=== PATIENT | female | born 1985 | race Caucasian/White ===

== ENCOUNTER 2016-11-26 14:30 | Emergency (ER) | payer OTHER ==
--- NOTE | 2016-11-26 14:46 | ED.ADGEN ---
Past History Past Medical History: No Pertinent History Past Medical History Asthma as a child, anxiety, restless leg syndrome Past Surgical History: , Tonsillectomy Past Surgical History 2, tonsillectomy with adenoidectomy, ORIF arm fracture, oral surgery Smoking: Quit Greater Than 1 Year Alcohol Use: None Drug Use: None Adult General HPI HPI This is a pleasant 31-year-old female who presents emergency Department with a chief complaint of vaginal bleeding. The patient is 9 weeks from a C- section. Patient states she had her last follow-up exam with her ASSOCIATE CREATIVE DIRECTOR 2 weeks ago and was allowed to return back to normal activities. The patient presents that she had sex 5 days ago for the first time. The patient reports that she's had vaginal bleeding greater than 2 pads per hour for the past 3 days. The patient reports that she is feeling weak and tired easily. The patient reports that the infant is sleeping well and that that is giving her reasonable sleep. She does understand why she is so tired. The patient reports that she is a C- section on September 25, 2016. Dr. anderson is her ASSOCIATE CREATIVE DIRECTOR. The patient taking Motrin and Tylenol as needed for pain since she was taken off of the Percocet that she is initially on for her . The patient also takes Zoloft for anxiety and referral for progressive leg syndrome. The patient reports feeling more anxious the delivery of her child. The patient denies suicidal or homicidal ideation. Review of Systems Review of Systems Constitutional: Denies fever or chills [] Eyes: Denies change in visual acuity, redness, or eye pain [] HENT: Denies nasal congestion or sore throat [] Respiratory: Denies cough or shortness of breath [] Cardiovascular: No additional information not addressed in HPI [] GI: Denies abdominal pain, nausea, vomiting, bloody stools or diarrhea [] : Denies dysuria or hematuria [] Musculoskeletal: Denies back pain or joint pain [] Integument: Denies rash or skin lesions [] Neurologic: Denies headache, focal weakness or sensory changes [] Endocrine: Denies polyuria or polydipsia [] Current Medications Current Medications Current Medications Medications (Trade) Dose Ordered Sig/[facility] Start Time Stop Time Status Last Admin Dose Admin Ketorolac Tromethamine (Toradol) 30 mg 1X ONCE 11/26/16 15:15 10/5/17 15:16 DC 11/26/16 15:14 30 MG Morphine Sulfate (Morphine 4mg Syringe) 4 mg PRN Q15MIN PRN 11/26/16 16:30 11/26/16 17:25 DC 11/26/16 17:02 4 MG Sodium Chloride 1,000 ml @ 1,000 mls/hr 1X ONCE 11/26/16 15:15 11/26/16 16:14 DC 11/26/16 15:13 1,000 MLS/HR Allergies Allergies Allergies Coded Allergies Type Severity Reaction Last Updated Verified No Known Drug Allergies 05/27/15 No Physical Exam Physical Exam Constitutional: Well developed, well nourished, no acute distress, non-toxic appearance. [] HENT: Normocephalic, atraumatic, bilateral external ears normal, oropharynx moist, no oral exudates, nose normal. [] Eyes: PERRLA, EOMI, conjunctiva normal, no discharge. [] Neck: Normal range of motion, no tenderness, supple, no stridor. [] Cardiovascular:Heart rate regular rhythm, no murmur [] Lungs & Thorax: Bilateral breath sounds clear to auscultation [] Abdomen: Bowel sounds normal, soft, no tenderness, no masses, no pulsatile masses. [] Skin: Warm, dry, no erythema, no rash. [] Back: No tenderness, no CVA tenderness. exam: performed with the nurse as my lipcoat sprayer, normal external genitalia, minimal vaginal bleeding less than that expected for a period, no blood clots in vagina, no cervical motion tenderness, no adenexal tenderness, no adenexal mass, no uterine mass, no vaginal discharge[] Extremities: No tenderness, no cyanosis, no clubbing, ROM intact, no edema. [] Neurologic: Alert and oriented X 3, normal motor function, normal sensory function, no focal deficits noted. [] Psychologic: Affect normal, judgement normal, mood normal. [] Current Patient Data Vital Signs Vital Signs Date Time Temp Pulse Resp B/P (MAP) Pulse Ox O2 Delivery O2 Flow Rate FiO2 11/26/16 17:22 82 18 105/59 (74) 99 Room Air 11/26/16 14:30 98.2 Lab Results Laboratory Tests Test 11/26/16 15:00 White Blood Count 5.9 x10^3/uL (4.0-11.0) Red Blood Count 4.03 x10^6/uL (3.50-5.40) Hemoglobin 12.4 g/dL (12.0-15.5) Hematocrit 36.3 % (36.0-47.0) Mean Corpuscular Volume 90 fL (79-100) Mean Corpuscular Hemoglobin 31 pg (25-35) Mean Corpuscular Hemoglobin Concent 34 g/dL (31-37) Red Cell Distribution Width 13.2 % (11.5-14.5) Platelet Count 195 x10^3/uL (140-400) Neutrophils (%) (Auto) 57 % (31-73) Lymphocytes (%) (Auto) 32 % (24-48) Monocytes (%) (Auto) 7 % (0-9) Eosinophils (%) (Auto) 4 % (0-3) H Basophils (%) (Auto) 1 % (0-3) Neutrophils # (Auto) 3.3 x10^3uL (1.8-7.7) Lymphocytes # (Auto) 1.9 x10^3/uL (1.0-4.8) Monocytes # (Auto) 0.4 x10^3/uL (0.0-1.1) Eosinophils # (Auto) 0.2 x10^3/uL (0.0-0.7) Basophils # (Auto) 0.0 x10^3/uL (0.0-0.2) Sodium Level 141 mmol/L (136-145) Potassium Level 3.5 mmol/L (3.5-5.1) Chloride Level 106 mmol/L (98-107) Carbon Dioxide Level 30 mmol/L (21-32) Anion Gap 5 (6-14) L Blood Urea Nitrogen 11 mg/dL (7-20) Creatinine 0.8 mg/dL (0.6-1.0) Estimated GFR (Cockcroft-Gault) 84.8 BUN/Creatinine Ratio 14 (6-20) Glucose Level 80 mg/dL (70-99) Calcium Level 8.8 mg/dL (8.5-10.1) Total Bilirubin 0.3 mg/dL (0.2-1.0) Aspartate Amino Transferase (AST) 18 U/L (15-37) Alanine Aminotransferase (ALT) 29 U/L (14-59) Alkaline Phosphatase 51 U/L (46-116) Total Protein 6.5 g/dL (6.4-8.2) Albumin 3.4 g/dL (3.4-5.0) Albumin/Globulin Ratio 1.1 (1.0-1.7) Microbiology 11/26/16 Wet Prep - Final, Complete Laboratory Tests Test 11/26/16 15:00 White Blood Count 5.9 x10^3/uL (4.0-11.0) Red Blood Count 4.03 x10^6/uL (3.50-5.40) Hemoglobin 12.4 g/dL (12.0-15.5) Hematocrit 36.3 % (36.0-47.0) Mean Corpuscular Volume 90 fL (79-100) Mean Corpuscular Hemoglobin 31 pg (25-35) Mean Corpuscular Hemoglobin Concent 34 g/dL (31-37) Red Cell Distribution Width 13.2 % (11.5-14.5) Platelet Count 195 x10^3/uL (140-400) Neutrophils (%) (Auto) 57 % (31-73) Lymphocytes (%) (Auto) 32 % (24-48) Monocytes (%) (Auto) 7 % (0-9) Eosinophils (%) (Auto) 4 % (0-3) H Basophils (%) (Auto) 1 % (0-3) Neutrophils # (Auto) 3.3 x10^3uL (1.8-7.7) Lymphocytes # (Auto) 1.9 x10^3/uL (1.0-4.8) Monocytes # (Auto) 0.4 x10^3/uL (0.0-1.1) Eosinophils # (Auto) 0.2 x10^3/uL (0.0-0.7) Basophils # (Auto) 0.0 x10^3/uL (0.0-0.2) Sodium Level 141 mmol/L (136-145) Potassium Level 3.5 mmol/L (3.5-5.1) Chloride Level 106 mmol/L (98-107) Carbon Dioxide Level 30 mmol/L (21-32) Anion Gap 5 (6-14) L Blood Urea Nitrogen 11 mg/dL (7-20) Creatinine 0.8 mg/dL (0.6-1.0) Estimated GFR (Cockcroft-Gault) 84.8 BUN/Creatinine Ratio 14 (6-20) Glucose Level 80 mg/dL (70-99) Calcium Level 8.8 mg/dL (8.5-10.1) Total Bilirubin 0.3 mg/dL (0.2-1.0) Aspartate Amino Transferase (AST) 18 U/L (15-37) Alanine Aminotransferase (ALT) 29 U/L (14-59) Alkaline Phosphatase 51 U/L (46-116) Total Protein 6.5 g/dL (6.4-8.2) Albumin 3.4 g/dL (3.4-5.0) Albumin/Globulin Ratio 1.1 (1.0-1.7) Microbiology 11/26/16 Wet Prep - Final, Complete EKG EKG [] Radiology/Procedures Radiology/Procedures [address] [address] IMAGING REPORT Signed PATIENT: MARIANO SALCEDO ACCOUNT: [id number] : 1985 LOCATION: ER AGE: 31 SEX: F EXAM STATUS: REG ER ORD. PHYSICIAN: CLARICE MORALES MD REASON: bleeding 9 weeks after c section concern for retained products of PROCEDURE: US PELVIS W/TV Pelvic ultrasound, 11/26/2016: History: bleeding Transabdominal and transvaginal scans were obtained. The uterus is retroverted. It is within normal limits in size. The central uterine echo complex measures only 6 mm in greatest AP dimension. No significant retained products of conception are evident. There is a tiny amount of fluid in the central uterine cavity. The ovaries are within normal limits in size. They contain small follicular cysts. No adnexal mass is seen. There is a small to moderate amount of free fluid in the pelvis. IMPRESSION: 1. Tiny amount of fluid in the central uterine cavity. 2. Small to moderate volume of free fluid in the pelvis. DICTATED AND SIGNED BY: PRIMITIVO CROWDER MD DATE: 11/26/16 5163 CC: JAY GAVIRIA MD; CLARICE MORALES MD ~ [] Course & Med Decision Making Course & Med Decision Making Pertinent Labs and Imaging studies reviewed. (See chart for details) This is a pleasant 31-year-old female who presents immersed department with ongoing vaginal bleeding following a delivery 9 weeks ago. The patient 's bleeding on exam was very minimal. The patient had minimal bleeding throughout her emergency department stay. Patient's hemogram agree stable throughout her emergency department stay. The patient's ultrasound did not show any signs for retained products of conception or other abnormalities. I discussed the patient the need for close follow-up patient verbalizes understanding and agrees to plan for outpatient follow-up. I recommended over- the-counter iron tablets or vitamins to help the patient maintained her iron levels. She verbalized understanding and agreed with this plan.[] Final Impression Final Impression Dysfunctional uterine bleeding, mild anemia[] Problems: Dragon Disclaimer Dragon Disclaimer This electronic medical record was generated, in whole or in part, using a voice recognition dictation system. Departure Departure: Impression: Primary Impression: Dysfunctional uterine bleeding Additional Impression: Anemia Disposition: 01 HOME, SELF-CARE Condition: GOOD Patient Instructions: Uterine Bleeding, Dysfunctional Additional Instructions: The patient is referred back to Dr. Alvares for follow-up. CLARICE MORALES MD Nov 26, 2016 14:46
[2016-11-26] MEDS ORDERED: KETOROLAC 30 MG/ML VIAL. IV ONE (15:15)
[2016-11-26] MEDS ORDERED: IV NORMAL SALINE 1,000ML 1,000 ML IV ONE (15:15)
[2016-11-26 15:22] LABS: BASO % 1 % (0-3); EOS # 0.2 x10^3/uL (0.0-0.7); EOS % 4 % (0-3); HEMATOCRIT 36.3 % (36.0-47.0); HEMOGLOBIN 12.4 g/dL (12.0-15.5); LYMPH # 1.9 x10^3/uL (1.0-4.8); LYMPH % 32 % (24-48); MEAN CORPUSCULAR HEMOGLOBIN 31 pg (25-35); MEAN CORPUSCULAR HGB CONC 34 g/dL (31-37); MEAN CORPUSCULAR VOLUME 90 fL (79-100); MONO # 0.4 x10^3/uL (0.0-1.1); MONO % 7 % (0-9); NEUT # 3.3 x10^3uL (1.8-7.7); NEUT % 57 % (31-73); PLATELET COUNT 195 x10^3/uL (140-400); RED BLOOD COUNT 4.03 x10^6/uL (3.50-5.40); RED CELL DISTRIBUTION WIDTH 13.2 % (11.5-14.5); WHITE BLOOD COUNT 5.9 x10^3/uL (4.0-11.0)
[2016-11-26 15:35] LABS: ALBUMIN 3.4 g/dL (3.4-5.0); ALBUMIN/GLOBULIN RATIO 1.1 (1.0-1.7); CALCIUM 8.8 mg/dL (8.5-10.1); CREATININE 0.8 mg/dL (0.6-1.0); GFR 84.8; POTASSIUM 3.5 mmol/L (3.5-5.1); TOTAL BILIRUBIN 0.3 mg/dL (0.2-1.0); TOTAL PROTEIN 6.5 g/dL (6.4-8.2)
[2016-11-26] MEDS: MORPHINE SULFATE 4 MG/ML DISP.SYRIN. IV/SQ PRN ×2 (16:35→17:02)
--- NOTE | 2016-11-26 16:39 | RAD ---
Pelvic ultrasound, 11/26/2016: History: bleeding Transabdominal and transvaginal scans were obtained. The uterus is retroverted. It is within normal limits in size. The central uterine echo complex measures only 6 mm in greatest AP dimension. No significant retained products of conception are evident. There is a tiny amount of fluid in the central uterine cavity. The ovaries are within normal limits in size. They contain small follicular cysts. No adnexal mass is seen. There is a small to moderate amount of free fluid in the pelvis. IMPRESSION: 1. Tiny amount of fluid in the central uterine cavity. 2. Small to moderate volume of free fluid in the pelvis.
[2016-11-26 17:22] VITALS: BP 105/59
[2016-11-30 21:08] LABS: CHLAMYDIA PROBE Negative (Negative)
== END 2016-11-26 17:25 | disposition home or self-care (01) ==
LOC: ER 14:30
DX: N93.8 Other specified abnormal uterine and vaginal bleeding (principal); D64.9 Anemia, unspecified; F41.9 Anxiety disorder, unspecified; Z98.890 Other specified postprocedural states
CPT/HCPCS: 36415; 76830; 76856; 80053; 85025; 86850; 86900; 86901; 87491; 87591; 96361; 96372; 96374; 96375; 99285; J1885; J2270; Q0111; J7030

== ENCOUNTER 2017-01-30 18:17 | Emergency (ER) | payer OTHER ==
[~2017-01-30] VITALS: Ht 160 cm; Wt 68.6 kg
[2017-01-30 18:43] VITALS: BP 105/59
== END 2017-01-30 19:05 | disposition home or self-care (01) ==
LOC: ER 18:17
DX: R10.9 Unspecified abdominal pain (principal); Z53.21 Procedure and treatment not carried out due to patient leaving prior to being seen by health care provider

== ENCOUNTER 2017-05-09 14:03 | Emergency (ER) | payer OTHER ==
[2017-05-09 14:15] VITALS: BP 138/76
--- NOTE | 2017-05-09 14:44 | PHYS DOC ---
Past History Past Medical History: UTI, Other Past Surgical History: , Tonsillectomy, Tubal ligation Smoking: Quit Greater Than 1 Year Alcohol Use: Rarely Drug Use: None Adult General Chief Complaint Chief Complaint: PAIN ON URINATION [facility] HPI Patient is a 31 year old female who presents with pain in the left back left hip. She states been hurting for last 3-4 days. She's been trying Tylenol and ibuprofen without any relief. She states it hurts more when she tries to bend over and picker tender her son. She states when she's had this pain in the past and has had a bladder kidney infection. She denies any nausea vomiting diarrhea. She denies any abdominal pain. Review of Systems Review of Systems Constitutional: Denies fever or chills [] Eyes: Denies change in visual acuity, redness, or eye pain [] HENT: Denies nasal congestion or sore throat [] Respiratory: Denies cough or shortness of breath [] Cardiovascular: No additional information not addressed in HPI [] GI: Denies abdominal pain, nausea, vomiting, bloody stools or diarrhea [] : Denies dysuria or hematuria [] Musculoskeletal: Positive for back pain, Denies joint pain [] Integument: Denies rash or skin lesions [] Neurologic: Denies headache, focal weakness or sensory changes [] Endocrine: Denies polyuria or polydipsia [] All other systems were reviewed and found to be within normal limits, except as documented in this note. Allergies Allergies Allergies Coded Allergies Type Severity Reaction Last Updated Verified No Known Drug Allergies 05/27/15 No Physical Exam Physical Exam Constitutional: Well developed, well nourished, no acute distress, non-toxic appearance. [] HENT: Normocephalic, atraumatic, bilateral external ears normal, oropharynx moist, no oral exudates, nose normal. [] Eyes: PERRLA, EOMI, conjunctiva normal, no discharge. [] Neck: Normal range of motion, no tenderness, supple, no stridor. [] Cardiovascular:Heart rate regular rhythm, no murmur [] Lungs & Thorax: Bilateral breath sounds clear to auscultation [] Abdomen: Bowel sounds normal, soft, no tenderness, no masses, no pulsatile masses. [] Skin: Warm, dry, no erythema, no rash. [] Back: Nontender palpation in the left paraspinal area down the left hip, no midline tenderness, no pain with range of motion of the left hip, no CVA tenderness. [] Extremities: No tenderness, no cyanosis, no clubbing, ROM intact, no edema. [] Neurologic: Alert and oriented X 3, normal motor function, normal sensory function, no focal deficits noted. [] Psychologic: Affect normal, judgement normal, mood normal. [] Current Patient Data Vital Signs Vital Signs Date Time Temp Pulse Resp B/P (MAP) Pulse Ox O2 Delivery O2 Flow Rate FiO2 05/09/17 14:15 98.4 89 18 96 Room Air Lab Results Laboratory Tests Test 05/09/17 13:39 POC Urine HCG, Qualitative hcg negative (Negative) EKG EKG [] Radiology/Procedures Radiology/Procedures [] Impressions: Muscle skeletal pain Vaginosis Course & Med Decision Making Course & Med Decision Making Pertinent Labs and Imaging studies reviewed. (See chart for details) UA and UCG negative. We'll treat for muscle skeletal pain with Flexeril. Return precautions given. When I was getting ready to discharge the patient she states Flexeril makes her too sleepy and recommend something else. She also confirmed nurse that she's had bacterial vaginosis and was treated with Keflex and it did not help. She is requesting another antibiotic. I spoke with the patient she does not want have a pelvic examination is requesting antibiotics. She is also requesting Diflucan. Dragon Disclaimer Dragon Disclaimer This electronic medical record was generated, in whole or in part, using a voice recognition dictation system. Departure Departure: Impression: Primary Impression: Back pain Disposition: 01 HOME, SELF-CARE Condition: STABLE Referrals: PCP,NO (PCP) Patient Instructions: Back Pain, Adult Additional Instructions: Your urinalysis did not show any signs of infection or . You likely pulled some muscles buttock area around your baby. You can take Valium as needed and as instructed. Valium can make you sleepy so do not drink alcohol or drive or taking it if it makes her too sleepy to take it every 8 hours and take one tablet before you go to bed. You can also take Tylenol or ibuprofen with it. If you develop high fevers, numbness or weakness in your legs, severe pain, or other concerns please return back to ER immediately. You should follow- up with primary care physician within the next 4-5 days. Do not breast-feed while taking these medicines. You are also being discharged with Flagyl which is an antibiotic for your vaginosis. Do not drink any alcohol or taking this medicine as it can make you sick. If you develop a yeast infection from the antibiotics she can take one tablet of Diflucan. You should follow back up with your FAMILY THERAPIST physician and primary care physician regarding the above problems. Scripts Fluconazole (DIFLUCAN) 150 Mg Tablet 1 TAB PO ONCE, #1 TAB 1 Refill Prov: GURVINDER FRANCIS MD 05/09/17 Metronidazole (FLAGYL) 500 Mg Tablet 1 TAB PO BID, #14 TAB Prov: GURVINDER FRANCIS MD 05/09/17 Diazepam (VALIUM) 5 Mg Tablet 5 MG PO TID Y for MUSCLE SPASMS, #20 TAB Prov: GURVINDER FRANCIS MD 05/09/17 Cyclobenzaprine Hcl (CYCLOBENZAPRINE HCL) 10 Mg Tablet 1 TAB PO TID Y for MUSCLE PAIN, #30 TAB Prov: GURVINDER FRANCIS MD 05/09/17 Problem Qualifiers Primary Impression: Back pain Back pain location: low back pain Chronicity: acute Back pain laterality: left Sciatica presence: without sciatica Qualified Codes: M54.5 - Low back pain GURVINDER FRANCIS MD May 09, 2017 14:44
[2017-05-09 14:55] LABS: BACTERIA,URINE FEW /HPF (0-FEW); BILIRUBIN,URINE NEG (NEG); CLARITY,URINE CLEAR; COLOR,URINE YELLOW; GLUCOSE,URINE NEG (NEG); NITRITE,URINE NEG (NEG); RBC,URINE 0 /HPF (0-2); SQUAMOUS EPITHELIAL CELL,UR OCC /LPF; UROBILINOGEN,URINE 0.2 mg/dL (0.2 mg/dL); WBC,URINE OCC /HPF (0-4)
[2017-05-09] MEDS ORDERED: CYCL-331 PO (15:08)
[2017-05-09] MEDS ORDERED: DIAZ5TAB PO (15:25)
[2017-05-09] MEDS ORDERED: METR500T PO (15:25)
[2017-05-09] MEDS ORDERED: FLUC150T PO (15:31)
== END 2017-05-09 15:34 | disposition home or self-care (01) ==
LOC: ER 14:03
DX: M54.5 Low back pain (principal); N76.0 Acute vaginitis; B96.89 Other specified bacterial agents as the cause of diseases classified elsewhere; Z87.440 Personal history of urinary (tract) infections; Z87.891 Personal history of nicotine dependence
CPT/HCPCS: 81001; 81025; 99283

== ENCOUNTER 2017-10-14 22:12 | Inpatient (IN) | payer OTHER ==
[~2017-10-14] VITALS: Ht 157.5 cm; Wt 72.6 kg
[~2017-10-14 22:12] MED LIST: CYCL-331 PO; DIAZ5TAB PO; FLUC150T PO; METR500T PO
[2017-10-14] MEDS ORDERED: ACETAMINOPHEN 500 MG TABLET PO ONE (23:45)
[2017-10-14 23:48] LABS: BASO % 0 % (0-3); EOS % 0 % (0-3); HEMATOCRIT 42.3 % (36.0-47.0); HEMOGLOBIN 14.1 g/dL (12.0-15.5); LYMPH # 0.3 x10^3/uL (1.0-4.8); LYMPH % 3 % (24-48); MEAN CORPUSCULAR HEMOGLOBIN 30 pg (25-35); MEAN CORPUSCULAR HGB CONC 33 g/dL (31-37); MEAN CORPUSCULAR VOLUME 90 fL (79-100); MONO # 0.7 x10^3/uL (0.0-1.1); MONO % 6 % (0-9); NEUT # 12.3 x10^3uL (1.8-7.7); NEUT % 92 % (31-73); PLATELET COUNT 203 x10^3/uL (140-400); RED BLOOD COUNT 4.72 x10^6/uL (3.50-5.40); WHITE BLOOD COUNT 13.4 x10^3/uL (4.0-11.0)
[2017-10-14 23:52] LABS: BILIRUBIN,URINE NEG (NEG); CLARITY,URINE HAZY; COLOR,URINE YELLOW; GLUCOSE,URINE NEG (NEG)
[2017-10-14 23:53] LABS: BACTERIA,URINE MOD /HPF (0-FEW); NITRITE,URINE POS (NEG); SQUAMOUS EPITHELIAL CELL,UR MANY /LPF; U PREG PATIENT NEGATIVE (NEG); UROBILINOGEN,URINE 1 mg/dL (0.2 mg/dL)
[2017-10-15 00:01] LABS: ALBUMIN 3.4 g/dL (3.4-5.0); ALBUMIN/GLOBULIN RATIO 0.8 (1.0-1.7); CALCIUM 8.9 mg/dL (8.5-10.1); CREATININE 0.9 mg/dL (0.6-1.0); GFR 73.5; POTASSIUM 3.3 mmol/L (3.5-5.1); TOTAL BILIRUBIN 0.8 mg/dL (0.2-1.0); TOTAL PROTEIN 7.6 g/dL (6.4-8.2)
[2017-10-15] MEDS ORDERED: cefTRIAXone IV Push 1 GM VIAL. IVP ONE (00:30)
[2017-10-15] MEDS: IV NORMAL SALINE 1,000ML 1,000 ML IV SCH ×6 (01:01→22:00)
--- NOTE | 2017-10-15 01:46 | PHYS DOC ---
Past History Past Medical History: UTI, Other Past Surgical History: , Tonsillectomy, Tubal ligation Smoking: Quit Greater Than 1 Year Alcohol Use: Rarely Drug Use: None Adult General Chief Complaint Chief Complaint: BACK PAIN OR INJURY HPI HPI Patient is a 32 year old female who presents with complaint of back pain, fever , and abdominal pain. Patient states her symptoms started yesterday. Patient states she started getting soreness and pain in her low back which has progressed to mid back pain and muscle aches today. Patient also notes that she is having headache and is feeling significantly chills. Patient states that the pain radiates from her flanks down into her pelvis. Patient does admit to dysuria and increased urinary frequency. Admits to nausea but no vomiting. Rates her pain currently as 9 out of 10 on my evaluation. Is taking medications for her symptoms.[] Review of Systems Review of Systems Constitutional: Fever, chills[] Eyes: Denies change in visual acuity, redness, or eye pain [] HENT: Denies nasal congestion or sore throat [] Respiratory: Denies cough or shortness of breath [] Cardiovascular: Denies chest pain or edema[] GI: Nausea, abdominal pain, denies vomiting, bloody stools or diarrhea [] : Dysuria, bilateral flank pain[] Musculoskeletal: Myalgias[] Integument: Denies rash or skin lesions [] Neurologic: Headache, denies focal weakness or sensory changes [] All other systems were reviewed and found to be within normal limits, except as documented in this note. Current Medications Current Medications Current Medications Medications (Trade) Dose Ordered Sig/[facility] Start Time Stop Time Status Last Admin Dose Admin Acetaminophen (Tylenol) 1,000 mg 1X ONCE 10/14/17 23:45 10/14/17 23:47 DC 10/15/17 01:01 1,000 MG Ceftriaxone Sodium 1 gm/ Sodium Chloride 50 ml @ 100 mls/hr 1X ONCE 10/15/17 00:15 10/15/17 00:44 UNV Ceftriaxone Sodium (Rocephin) 1 gm ONCE ONCE 10/15/17 00:30 10/15/17 00:31 DC 10/15/17 01:01 1 GM Sodium Chloride 1,000 ml @ 1,500 mls/hr Q40M 10/15/17 00:15 10/15/17 01:14 DC 10/15/17 01:01 1,500 MLS/HR Allergies Allergies Allergies Coded Allergies Type Severity Reaction Last Updated Verified No Known Drug Allergies 05/27/15 No Physical Exam Physical Exam Constitutional: Alert, afebrile, appears ill. [] HENT: Normocephalic, atraumatic, bilateral external ears normal, oropharynx moist, no oral exudates, nose normal. [] Eyes: PERRLA, EOMI, conjunctiva normal, no discharge. [] Neck: Normal range of motion, no tenderness, supple, no stridor. [] Cardiovascular: Tachycardia, regular rhythm, no murmur [] Lungs & Thorax: Bilateral breath sounds clear to auscultation [] Abdomen: Bowel sounds normal, soft, no tenderness, no masses, no pulsatile masses. [] Skin: Warm, dry, no erythema, no rash. [] Back: Bilateral CVA tenderness, bilateral lower appears nostrils tenderness palpation, no midline tenderness. [] Extremities: No tenderness, no cyanosis, no clubbing, ROM intact, no edema. [] Neurologic: Alert and oriented X 3, normal motor function, normal sensory function, no focal deficits noted. [] Current Patient Data Lab Results Laboratory Tests Test 10/14/17 22:17 10/14/17 22:37 10/14/17 23:20 10/15/17 00:48 Urine Collection Type Unknown Urine Color Yellow Urine Clarity Hazy Urine pH 6.0 Urine Specific [place] 1.020 Urine Protein 100 mg/dl (NEG-TRACE) Urine Glucose (UA) Neg mg/dL (NEG) Urine Ketones (Stick) >=160 mg/dL (NEG) Urine Blood Mod (NEG) Urine Nitrite Pos (NEG) Urine Bilirubin Neg (NEG) Urine Urobilinogen Dipstick 1 mg/dL (0.2 mg/dL) Urine Leukocyte Esterase Small (NEG) Urine RBC 6-10 /HPF (0-2) Urine WBC 5-10 /HPF (0-4) Urine Squamous Epithelial Cells Many /LPF Urine Bacteria Mod /HPF (0-FEW) Urine Test Negative (NEG) POC Urine HCG, Qualitative hcg negative (Negative) White Blood Count 13.4 x10^3/uL (4.0-11.0) H Red Blood Count 4.72 x10^6/uL (3.50-5.40) Hemoglobin 14.1 g/dL (12.0-15.5) Hematocrit 42.3 % (36.0-47.0) Mean Corpuscular Volume 90 fL (79-100) Mean Corpuscular Hemoglobin 30 pg (25-35) Mean Corpuscular Hemoglobin Concent 33 g/dL (31-37) Red Cell Distribution Width 14.0 % (11.5-14.5) Platelet Count 203 x10^3/uL (140-400) Neutrophils (%) (Auto) 92 % (31-73) H Lymphocytes (%) (Auto) 3 % (24-48) L Monocytes (%) (Auto) 6 % (0-9) Eosinophils (%) (Auto) 0 % (0-3) Basophils (%) (Auto) 0 % (0-3) Neutrophils # (Auto) 12.3 x10^3uL (1.8-7.7) H Lymphocytes # (Auto) 0.3 x10^3/uL (1.0-4.8) L Monocytes # (Auto) 0.7 x10^3/uL (0.0-1.1) Eosinophils # (Auto) 0.0 x10^3/uL (0.0-0.7) Basophils # (Auto) 0.0 x10^3/uL (0.0-0.2) Sodium Level 135 mmol/L (136-145) L Potassium Level 3.3 mmol/L (3.5-5.1) L Chloride Level 99 mmol/L (98-107) Carbon Dioxide Level 25 mmol/L (21-32) Anion Gap 11 (6-14) Blood Urea Nitrogen 6 mg/dL (7-20) L Creatinine 0.9 mg/dL (0.6-1.0) Estimated GFR (Cockcroft-Gault) 73.5 BUN/Creatinine Ratio 7 (6-20) Glucose Level 92 mg/dL (70-99) Calcium Level 8.9 mg/dL (8.5-10.1) Total Bilirubin 0.8 mg/dL (0.2-1.0) Aspartate Amino Transferase (AST) 11 U/L (15-37) L Alanine Aminotransferase (ALT) 15 U/L (14-59) Alkaline Phosphatase 80 U/L (46-116) Total Protein 7.6 g/dL (6.4-8.2) Albumin 3.4 g/dL (3.4-5.0) Albumin/Globulin Ratio 0.8 (1.0-1.7) L Lactic Acid Level 1.0 mmol/L (0.4-2.0) EKG EKG Not performed[] Radiology/Procedures Radiology/Procedures Not performed[] Course & Med Decision Making Course & Med Decision Making Pertinent Labs and Imaging studies reviewed. (See chart for details) Patient's exam and lab work are consistent with acute pyelonephritis. The patient does meet sepsis criteria although lactic acid level was normal, this patient does not meet severe sepsis criteria. The patient was given IV fluids and started on IV Rocephin after blood cultures were drawn reviewed given the severity of patient's symptoms I do feel that admission for treatment is appropriate. Patient admitted to Dr. Daniels. Critical care time excluding procedures: 35 minutes Dragon Disclaimer Dragon Disclaimer This electronic medical record was generated, in whole or in part, using a voice recognition dictation system. Departure Departure: Impression: Primary Impression: Acute pyelonephritis Additional Impression: Sepsis Disposition: 09 ADMITTED INPATIENT Admitting Physician: Gautam Daniels Condition: GUARDED Referrals: PCP,NO (PCP) Problem Qualifiers Additional Impression: Sepsis Sepsis type: sepsis due to unspecified organism Qualified Codes: A41.9 - Sepsis, unspecified organism MIRIAM OBANDO MD Oct 15, 2017 01:46
[2017-10-15] MEDS ORDERED: ACETAMINOPHEN 325 MG TABLET PO PRN ×2 (02:00→11:45)
[2017-10-15 03:09] VITALS: BP 114/73
[2017-10-15] MEDS: ONDANSETRON PF 4 MG/2 ML VIAL. IV PRN ×2 (03:52→12:50)
[2017-10-15] MEDS ORDERED: DENIES ANY HOME MEDS (04:10)
[2017-10-15 05:41] VITALS: BP 115/72
[2017-10-15] MEDS: HYDROmorphone PF 2 MG/ML VIAL IV PRN ×5 (06:17→19:36)
[2017-10-15] MEDS: NICOTINE 21MG PATCH. TD SCH (09:43)
--- NOTE | 2017-10-15 11:08 | RAD ---
CT Abdomen and Pelvis without contrast History: Bilateral flank pain since Wednesday Technique: Noncontrast CT imaging was performed of the abdomen and pelvis. Multiplanar images are reviewed. Exposure: One or more of the following individualized dose reduction techniques were utilized for this examination: 1. Automated exposure control 2. Adjustment of the mA and/or kV according to patient size 3. Use of iterative reconstruction technique. Comparison: November 07, 2015 Findings: There is no significant abnormality of the limited visualized lung bases. Accurate evaluation of abdominal visceral organs is limited without intravenous contrast. There is no obvious abnormality of the spleen, liver, or pancreas. There is no adrenal nodularity. There is mild strandy change of the right perinephric fat and mild right pelvocaliectasis. Ureters are poorly distinguished especially in the pelvis, no new calculus in expected course of the right ureter. There are phleboliths in the pelvis bilaterally. No renal calculus. No significantly enlarged nodes are identified. Accurate evaluation of bowel is limited without oral contrast. There is minimal nonspecific dependent free fluid in the right pelvis. There is at least segmental visualization of the normal caliber appendix, difficult to visualize in its entirety. There may be underlying small right adnexal cyst. Impression: 1. There is mild right pelvocaliectasis and strandy change of the right perinephric fat, no definitive right ureteral calculus and no renal calculus. Pyelonephritis is in the differential considerations. Ureters in the pelvis are poorly distinguished, also phleboliths present. 2. There is minimal nonspecific dependent free fluid in the right pelvis. There may be underlying small right adnexal cyst. At least a segment of normal appendix is visualized. Electronically signed by: Yuniel Baca MD (10/15/2017 11:05 AM) [id number]
[2017-10-15 11:14] VITALS: BP 110/70
[2017-10-15] MEDS ORDERED: POTASSIUM CHLORIDE 20 MEQ TABLET.ER. PO ONE (14:00)
[2017-10-15] MEDS ORDERED: MAG HYDROX/AL HYDROX/SIMETH 30 ML ORAL.SUSP PO PRN (14:15)
[2017-10-15] MEDS: PANTOPRAZOLE 40 MG TABLET. PO SCH (14:25)
[2017-10-15] MEDS: traMADol 50 MG TABLET PO PRN ×2 (14:25→21:10)
[2017-10-15] MEDS: diphenhydrAMINE 50 MG/ML VIAL IVP PRN ×2 (14:25→19:46)
--- NOTE | 2017-10-15 14:30 | HP ---
ADMIT DATE: 10/15/2017 HISTORY OF PRESENT ILLNESS: The patient is a 32-year-old female patient, who came to the Emergency Room complaining of back pain, fever and abdominal pain. Her symptoms started day before admission. She stated that she is having severe pain in her low back, which has progressed to mid back pain and muscle aches. She also notes that she is having headache and is feeling significant chills. She apparently was found to be febrile in the Emergency Room with a temperature of 102.9. The pain radiates from her flanks down to her pelvis. She does admit to dysuria and increased urinary frequency. Admits to nausea, but no vomiting. She rates her pain as 9/10. She has tried Tylenol and ibuprofen without much improvement and therefore she decided to come to the Emergency Room where she was evaluated and was admitted. She was found to have leukocytosis and her urinalysis showed that there was large amount of bacteria. It was positive for nitrite and leukocyte esterase. Her test was negative and she was admitted to be treated with Rocephin 1 gram IV daily together with IV fluid and pain management. PAST MEDICAL HISTORY: Unremarkable. She has childhood bronchial asthma that she outgrow and also bilateral recurrent otitis media for which she has myringotomy tube placement. PAST SURGICAL HISTORY: Significant for tonsillectomy, three C-sections, tubal ligation, bilateral myringotomy, carpal tunnel release and right wrist fracture, status post closed reduction. ALLERGIES: She has no known drug allergies. MEDICATIONS: She is on [id number] medication in the form of Tylenol, ibuprofen and Benadryl. FAMILY HISTORY: She has two full brothers, both healthy. One of them is overweight. One sister has Graves' disease. Her father in his early 50s because of COPD and alcoholism. Mother is still alive at age of 53 and is known to have hypertension. SOCIAL HISTORY: She lives with her significant other. She has a daughter and a son. She smokes a pack a day, drinks alcohol occasionally. Smoking weed about a year and half ago. She used to work at [employer] and she is now unemployed because of severe carpal tunnel syndrome. REVIEW OF SYSTEMS: The patient denied any blurring of vision, cataract, glaucoma or macular degeneration. Denied any earache, tinnitus or sensorineural deafness. Denied any nosebleeds, stuffy nose or postnasal drip. Denied any sore throat, sore tongue, toothache, hoarseness of voice or difficulty swallowing. Did complain of nausea, but no vomiting. Denied any hematemesis, melena or hematochezia. Did complain of dysuria and frequency, but denied any hematuria. Denied any chest pain, shortness of breath, orthopnea, paroxysmal nocturnal dyspnea. Did complain of chills and fever. Apparently, her temperature was up to 102.9. PHYSICAL EXAMINATION: GENERAL: When I examined her, she looked well and was clearly in no apparent respiratory distress. No pallor, jaundice, cyanosis, or thyromegaly. No jugular venous distension. No lower limb edema. VITAL SIGNS: Her heart rate was 103, blood pressure was 121/58, temperature was 99.3, respiratory rate was 18 and oxygen saturation was 99% on room air. HEAD, EYES, EARS, NOSE AND THROAT: Showed normocephalic, atraumatic. NECK: Supple. HEART: Showed normal first and second heart sounds with no gallop, rub or murmur. CHEST: Clear to auscultation. No crepitation or rhonchi. ABDOMEN: Distended, soft, nontender. The patient has no tenderness on her renal angle. She did complain of pain in mid back and lower back. There is no obvious redness or tenderness to palpation. NEUROLOGIC: She is awake, alert, responding appropriately. All cranial nerves intact. EXTREMITIES: She moves extremities without difficulty. She ambulates without assistance or assistive devices. LABORATORY DATA: Her lab work this morning showed a white cell count of 13,400, hemoglobin 14, hematocrit 42, MCV 90 and platelet count of 203,000. Her chemistry showed a serum sodium 135, potassium 3.3, chloride 99, bicarbonate 25, anion gap of 11, BUN 6, creatinine 0.9, estimated GFR was 73 mL per minute. Her glucose was 92, lactic acid was only 1, calcium was 8.9. Total bilirubin, AST, ALT, alkaline phosphatase were normal. Total protein 7.6, albumin 3.4. Her urinalysis showed the urine was yellow, hazy with a pH of 6, specific gravity of 1.020. There was large amount of protein. The urine was negative for glucose, large amount of ketones, moderate amount of blood, positive for nitrites and negative with small amount of leukocyte esterase, 6-10 rbc's, 5-10 wbc's, moderate amount of bacteria. Her urine test was negative. Her CT scan of the abdomen and pelvis showed that there is mild right pelvocaliectasis and stranding changes of the right perinephric fat. No definitive right ureteral calculus and no renal calculus. Perinephritis is in differential diagnosis. Ureters in the pelvis are poorly distinguished. Also phleboliths present. There is minimal nonspecific dependent free fluid in the right pelvis. There may be underlying small right adnexal cyst at least segment of the normal appendix is visualized. SUMMARY: This is a 32-year-old female patient, who was admitted with the back pain radiating to the groin area associated with polyuria and frequency, fever and leukocytosis. CT scan suggestive of pyelonephritis. We will continue with IV fluid, IV antibiotic in the form of Rocephin and pain medication. I will add Flomax as well as Benadryl. We will repeat all her lab works tomorrow and decide on further management accordingly. JEAN DANIELSON MD DR: NADEGE/manuel JOB#: [id number] / [id number]
[2017-10-15 15:00] VITALS: BP 108/65
[2017-10-15 19:30] VITALS: BP 105/63
[2017-10-15] MEDS: LACTOBACILLUS RHAMNOSUS GG 1 CAPSULE. PO SCH (19:36)
[2017-10-15] MEDS ORDERED: TAMSULOSIN 0.4 MG CAP.ER.24H. PO SCH (21:00)
[2017-10-15] MEDS ORDERED: cefTRIAXone IV Push 1 GM VIAL. IVP SCH (22:00)
[2017-10-16] MEDS: HYDROmorphone PF 2 MG/ML VIAL IV PRN ×4 (01:29→11:05)
[2017-10-16] MEDS: IV NORMAL SALINE 1,000ML 1,000 ML IV SCH ×2 (01:30→07:55)
[2017-10-16] MEDS: diphenhydrAMINE 50 MG/ML VIAL IVP PRN ×2 (03:52→08:33)
[2017-10-16] MEDS: traMADol 50 MG TABLET PO PRN ×2 (03:52→07:55)
[2017-10-16 05:19] VITALS: BP 87/54
[2017-10-16 06:06] LABS: HEMATOCRIT 33.1 % (36.0-47.0); HEMOGLOBIN 11.3 g/dL (12.0-15.5); RED BLOOD COUNT 3.69 x10^6/uL (3.50-5.40); WHITE BLOOD COUNT 11.1 x10^3/uL (4.0-11.0)
[2017-10-16 06:13] LABS: ALBUMIN 2.4 g/dL (3.4-5.0); ALBUMIN/GLOBULIN RATIO 0.7 (1.0-1.7); CALCIUM 8.2 mg/dL (8.5-10.1); CREATININE 0.7 mg/dL (0.6-1.0); GFR 98.3; TOTAL BILIRUBIN 0.3 mg/dL (0.2-1.0); TOTAL PROTEIN 5.8 g/dL (6.4-8.2)
[2017-10-16] MEDS: PANTOPRAZOLE 40 MG TABLET. PO SCH (07:55)
[2017-10-16] MEDS: LACTOBACILLUS RHAMNOSUS GG 1 CAPSULE. PO SCH (07:55)
[2017-10-16] MEDS: NICOTINE 21MG PATCH. TD SCH (07:56)
[2017-10-16] MEDS ORDERED: oxyCODONE/APAP 5/325 1 TAB TABLET PO PRN (09:30)
[2017-10-16] MEDS ORDERED: OXYC-323 PO (10:46)
[2017-10-16] MEDS ORDERED: CEFP200T PO (10:46)
--- NOTE | 2017-10-16 11:42 | DS ---
DATE OF DISCHARGE: 10/16/2017 HOSPITAL COURSE: The patient is a 32-year-old female patient who came to the Emergency Room complaining of back pain. She was found to be febrile in the Emergency Room with temperature of 102.9. The pain radiates from her flanks down to her pelvis and does admit to dysuria and decreased urinary frequency. Admits to nausea, but no vomiting. She came to the Emergency Room and was found to have leukocytosis and her urinalysis showed that there were large amounts of bacteria and was positive for nitrite and leukocyte esterase. Her test was negative. She was started on 1 gram of IV Rocephin daily as well as IV fluid and pain management. We did a CT scan of the abdomen, which basically showed there is mild right pelvocaliectasis and strandy changes in the right perinephric fat with no definite right ureteral calculus and no renal calculus. The patient was treated for pyelonephritis. We sent blood for culture and sensitivity as well as urine for culture and sensitivity and was started on IV Rocephin, IV fluid, and the pain medication. She did actually very well. PHYSICAL EXAMINATION: GENERAL: When I examined her this morning, she looked well and was clearly in no apparent respiratory distress. No pallor, jaundice, cyanosis, or thyromegaly. No jugular venous distension. No lower limb edema. VITAL SIGNS: Her heart rate was 103, blood pressure was 87/54, temperature was 98.3, respiratory rate was 18, and oxygen saturation was 98%. HEENT: Examination of the head, eyes, ears, nose and throat showed normocephalic, atraumatic. NECK: Supple. HEART: Showed normal first and second heart sounds with no gallop, rub or murmur. CHEST: Clear to auscultation. No crepitation or rhonchi. ABDOMEN: Distended, soft, nontender. No guarding or rigidity. No organomegaly. Her hernial orifices are intact and bowel sounds normal. NEUROLOGIC: She was awake, alert, responding appropriately. All her cranial nerves are intact. EXTREMITIES: She moves extremities without difficulty. She ambulates without assistance or assistive devices. Her intake was 1600, output was 350. LABORATORY DATA: Her lab work this morning showed the white cell count is down to 11,100, hemoglobin 11, hematocrit 33, MCV 90, and platelet count of 172,000. Her chemistry showed serum sodium 136, potassium 4, chloride 104, bicarbonate 25, anion gap of 7, BUN 4, creatinine 0.7, estimated GFR was 98 mL per minute. Her glucose was 87, calcium was 8.2. Total bilirubin, AST, ALT, alkaline phosphatase was normal. Total protein was 5.8, albumin 2.4. Her blood cultures are so far negative. DISCHARGE MEDICATIONS: The patient was discharged home to continue on cefpodoxime 200 mg twice a day, Percocet 5/325 one to two tablets every 4-6 hours as needed, and Protonix 40 mg once a day. DISCHARGE INSTRUCTION: The patient was advised to follow up with her primary care physician. FINAL DISCHARGE DIAGNOSES: 1. Acute pyelonephritis. 2. Hypokalemia. 3. Acute kidney injury. 4. Gastroesophageal reflux disease. JEAN DANIELSON MD DR: NADEGE/manuel JOB#: [id number] / [id number]
== END 2017-10-16 11:20 | disposition home or self-care (01) | DRG 872 ==
LOC: ER 22:12 → 1 SOUTH 10-15 03:08 → ICU 10-15 18:09
PROVIDERS: ADMIT Internal Medicine; ATTEND Internal Medicine
DX: A41.9 Sepsis, unspecified organism (principal); N10 Acute pyelonephritis; N17.9 Acute kidney failure, unspecified; E87.6 Hypokalemia; F17.210 Nicotine dependence, cigarettes, uncomplicated; G56.00 Carpal tunnel syndrome, unspecified upper limb; K21.9 Gastro-esophageal reflux disease without esophagitis; Z82.49 Family history of ischemic heart disease and other diseases of the circulatory system; Z82.5 Family history of asthma and other chronic lower respiratory diseases; Z98.891 History of uterine scar from previous surgery; Z98.51 Tubal ligation status
CPT/HCPCS: 36415; 74176; 80053; 81001; 81025; 83605; 85025; 85027; 87040; 87086; 87186; 96361; 96374; 99406; J0696; J1170; J1200; J2405; J3010; 99291-25; J7030

== ENCOUNTER 2021-02-10 11:49 | Emergency (ER) | payer MEDICAID ==
[~2021-02-10] VITALS: Ht 157.5 cm; Wt 65.0 kg
[~2021-02-10 11:49] MED LIST changes: +CEFP200T PO; -CYCL-331 PO; +CYCL10TA19 PO; +DENIES ANY HOME MEDS; +OXYC1TAB15 PO
[2021-02-10 11:55] VITALS: BP 126/84
--- NOTE | 2021-02-10 13:12 | PHYS DOC ---
Past History Past Medical History: UTI, Other Past Surgical History: , Tonsillectomy, Tubal ligation Smoking: Quit Greater Than 1 Year Alcohol Use: Rarely Drug Use: None General Adult EDM: Chief Complaint: MULTIPLE COMPLAINTS HPI: HPI: 35-year-old female presents with right-sided abdominal pain. She has had a cramping pain of moderate intensity for about 3 days. It started out mild intermittent and is stronger and more frequent now. Nothing seems to make it better or worse. Patient does not eat very well due to poor dentition. She states that her bowel movements are every few days and they have been normal lately. She does believe she is a bit dehydrated and her urine is cloudy. She denies fever or chills. She has history of tubal ligation. Review of Systems: Review of Systems: Constitutional: Denies fever or chills Eyes: Denies change in visual acuity HENT: Denies nasal congestion or sore throat Respiratory: Denies cough or shortness of breath Cardiovascular: Denies chest pain or edema GI: Right-sided abdominal pain, nausea. Denies vomiting, bloody stools or diarrhea : Dysuria Musculoskeletal: Denies back pain or joint pain Integument: Denies rash Neurologic: Denies headache, focal weakness or sensory changes Endocrine: Denies polyuria or polydipsia Lymphatic: Denies swollen glands Psychiatric: Denies depression or anxiety Current Medications: Current Meds: Current Medications Medications (Trade) Dose Ordered Sig/Marco Start Time Stop Time Status Last Admin Dose Admin Sodium Chloride 1,000 ml @ 1,000 mls/hr 1X ONCE 02/10/21 13:15 02/10/21 14:14 UNV Allergies: Allergies: Allergies Coded Allergies Type Severity Reaction Last Updated Verified Penicillins Allergy Unknown 02/10/21 Yes Physical Exam: PE: Constitutional: Well developed, well nourished, no acute distress, non-toxic appearance. [] HENT: Normocephalic, atraumatic, bilateral external ears normal, oropharynx dry, no oral exudates, nose normal. Poor dentition. [] Eyes: PERRLA, EOMI, conjunctiva normal, no discharge. [] Neck: Normal range of motion, no tenderness, supple, no stridor. [] Cardiovascular: Heart rate regular rhythm, no murmur [] Lungs & Thorax: Bilateral breath sounds clear to auscultation [] Abdomen: Bowel sounds normal, soft, right-sided and epigastric tenderness, no masses, no pulsatile masses. [] Skin: Warm, dry, no erythema, no rash. [] Back: No tenderness, no CVA tenderness. [] Extremities: No tenderness, no cyanosis, no clubbing, ROM intact, no edema. [] Neurologic: Alert and oriented X 3, normal motor function, normal sensory function, no focal deficits noted. [] Psychologic: Affect normal, judgement normal, mood normal. [] Current Patient Data: Vital Signs: Vital Signs Date Time Temp Pulse Resp B/P (MAP) Pulse Ox O2 Delivery O2 Flow Rate FiO2 02/10/21 11:55 98.9 110 22 126/84 (98) 99 EKG: EKG: [] Radiology/Procedures: Radiology/Procedures: [] Impressions: INDICATION: Reason: Right sided pain / Spl. Instructions: / History: COMPARISON: September 2017 TECHNIQUE: Axial CT images were obtained through the abdomen and pelvis with intravenous contrast. One or more of the following individualized dose reduction techniques were utilized for this examination: 1. Automated exposure control; 2. Adjustment of the mA and/or kV according to patient size; 3. Use of iterative reconstruction technique. FINDINGS: Vascular: No abdominal aortic aneurysm. Hepatobiliary: Subcentimeter low-density lesion of liver, too small to characterize but a common finding. Pancreas: No peripancreatic edema. Spleen: Spleen unremarkable. Renal/Bladder: Minimal urine within the bladder limits evaluation. There are some regions of low density along the cortex of the right kidney with adjacent edema to the fat. There is also some prominent urothelial enhancement on the right. Gastrointestinal: The partially visualized appendix does not appear grossly inflamed. Small free fluid in the pelvis. 12 mm sclerotic lesion right anterior acetabulum most commonly from bone island. IMPRESSION: * Regions of low density at the right renal cortex with adjacent edema to the fat as well as urothelial enhancement. Most likely cause would be pyelonephritis. Would correlate with infectious symptoms. Alternative causes such as cortical infarct could also have this CT appearance but would be less likely in a patient of this age unless they have known history of vascular disease such as vasculitis. Follow-up could be obtained to ensure that this appropriately resolves to ensure there is no persistent low-density lesion in the area. Electronically signed by: Nely Christian MD (02/10/2021 2:29 PM) [id number] DICTATED AND SIGNED BY: NELY CHRISTIAN MD DATE: 02/10/211416 CC: TANG FARRIS DO; PCP,NO ~MTH0 0 Heart Score: C/O Chest Pain: N/A Risk Factors: Risk Factors: DM, Current or recent (<one month) smoker, HTN, HLP, family history of CAD, obesity. Risk Scores: Score 0 - 3: 2.5% MACE over next 6 weeks - Discharge Home Score 4 - 6: 20.3% MACE over next 6 weeks - Admit for Clinical Observation Score 7 - 10: 72.7% MACE over next 6 weeks - Early Invasive Strategies Course & Med Decision Making: Course & Med Decision Making Pertinent Labs and Imaging studies reviewed. (See chart for details) The patient's labs are unremarkable except for mild anemia. Her urinalysis significant for urinary tract infection. CT the abdomen and pelvis shows pyelonephritis. She does not have a fever. We have given her 2 L of normal saline and a gram of Rocephin IV. I will discharge the patient on 7 days of levofloxacin. She is stable for discharge at this time. [] Dragon Disclaimer: Dragon Disclaimer: This electronic medical record was generated, in whole or in part, using a voice recognition dictation system. Departure Departure: Impression: Primary Impression: Acute pyelonephritis Disposition: HOME / SELF CARE / HOMELESS Condition: STABLE Referrals: PCP,NO (PCP) Patient Instructions: Pyelonephritis, Adult, [id number] Levofloxacin (LEVOFLOXACIN) 750 Mg Tablet 1 TAB PO DAILY for pyelonephritis for 7 Days, #7 TAB Prov: TANG FARRIS DO 02/10/21 TANG FARRIS DO Feb 10, 2021 13:12
[2021-02-10] MEDS ORDERED: IV NORMAL SALINE 1,000ML 1,000 ML IV ONE (13:15)
[2021-02-10] MEDS ORDERED: IOHEXOL 300 MG/ML 75 ML VIAL. IV ONE (13:15)
[2021-02-10 13:21] LABS: BASO % 0 % (0-3); EOS % 0 % (0-3); HEMATOCRIT 33.8 % (36.0-47.0); LYMPH # 0.6 x10^3/uL (1.0-4.8); LYMPH % 8 % (24-48); MEAN CORPUSCULAR HEMOGLOBIN 27 pg (25-35); MEAN CORPUSCULAR HGB CONC 32 g/dL (31-37); MEAN CORPUSCULAR VOLUME 82 fL (79-100); MONO # 0.6 x10^3/uL (0.0-1.1); MONO % 7 % (0-9); NEUT % 85 % (31-73); PLATELET COUNT 236 x10^3/uL (140-400); RED BLOOD COUNT 4.14 x10^6/uL (3.50-5.40); RED CELL DISTRIBUTION WIDTH 16.5 % (11.5-14.5); WHITE BLOOD COUNT 8.2 x10^3/uL (4.0-11.0)
[2021-02-10 13:24] LABS: CALCIUM 8.3 mg/dL (8.5-10.1); CREATININE 0.8 mg/dL (0.6-1.0); GFR 82.6; POTASSIUM 3.6 mmol/L (3.5-5.1)
[2021-02-10 13:30] LABS: ALBUMIN 3.1 g/dL (3.4-5.0); ALBUMIN/GLOBULIN RATIO 0.8 (1.0-1.7); TOTAL BILIRUBIN 0.6 mg/dL (0.2-1.0); TOTAL PROTEIN 6.8 g/dL (6.4-8.2)
[2021-02-10] MEDS ORDERED: MORPHINE SULFATE 2 MG/ML DISP.SYRIN. IV ONE (13:30)
[2021-02-10 14:08] LABS: BILIRUBIN,URINE NEG (NEG); CLARITY,URINE CLOUDY; COLOR,URINE YELLOW; GLUCOSE,URINE NEG (NEG); NITRITE,URINE NEG (NEG); RBC,URINE OCC /HPF (0-2); UROBILINOGEN,URINE 0.2 mg/dL (0.2 mg/dL); WBC,URINE TNTC /HPF (0-4)
[2021-02-10 14:09] LABS: BACTERIA,URINE MANY /HPF (0-FEW); SQUAMOUS EPITHELIAL CELL,UR MOD /LPF
[2021-02-10] MEDS ORDERED: diphenhydrAMINE 50 MG/ML VIAL IVP ONE (14:30)
[2021-02-10] MEDS ORDERED: KETOROLAC 30 MG/ML VIAL. IVP ONE (14:30)
[2021-02-10] MEDS ORDERED: METOCLOPRAMIDE HCL 10 MG/2 ML VIAL. IVP ONE (14:30)
--- NOTE | 2021-02-10 14:32 | RAD ---
INDICATION: Reason: Right sided pain / Spl. Instructions: / History: COMPARISON: September 2017 TECHNIQUE: Axial CT images were obtained through the abdomen and pelvis with intravenous contrast. One or more of the following individualized dose reduction techniques were utilized for this examinat ion: 1. Automated exposure control; 2. Adjustment of the mA and/or kV according to patient size; 3 . Use of iterative reconstruction technique. FINDINGS: Vascular: No abdominal aortic aneurysm. Hepatobiliary: Subcentimeter low-density lesion of liver, too small to characterize but a common find ing. Pancreas: No peripancreatic edema. Spleen: Spleen unremarkable. Renal/Bladder: Minimal urine within the bladder limits evaluation. There are some regions of low dens ity along the cortex of the right kidney with adjacent edema to the fat. There is also some prominent urothelial enhancement on the right. Gastrointestinal: The partially visualized appendix does not appear grossly inflamed. Small free fluid in the pelvis. 12 mm sclerotic lesion right anterior acetabulum most commonly from bone island. IMPRESSION: * Regions of low density at the right renal cortex with adjacent edema to the fat as well as urothe lial enhancement. Most likely cause would be pyelonephritis. Would correlate with infectious symptoms . Alternative causes such as cortical infarct could also have this CT appearance but would be less li geo in a patient of this age unless they have known history of vascular disease such as vasculitis. Follow-up could be obtained to ensure that this appropriately resolves to ensure there is no persiste nt low-density lesion in the area. Electronically signed by: Enrique Christian MD (02/10/2021 2:29 PM) [id number]
[2021-02-10] MEDS ORDERED: cefTRIAXone SODIUM 1 GM VIAL ONE (14:35)
[2021-02-10] MEDS ORDERED: IV NORMAL SALINE 50ML 50 ML ONE (14:35)
[2021-02-10] MEDS ORDERED: LEVO750T5 PO (15:05)
== END 2021-02-10 15:30 | disposition home or self-care (01) ==
LOC: ER 11:49
DX: N10 Acute pyelonephritis (principal); Z87.891 Personal history of nicotine dependence; Z98.51 Tubal ligation status; Z87.440 Personal history of urinary (tract) infections; Z88.0 Allergy status to penicillin
CPT/HCPCS: 36415; 74177; 80053; 81001; 83690; 85025; 87077; 87086; 87186; 96361; 96365; 96375; 99285; J0696; J1200; J1885; J2270; J2765; J7030; Q9967

== ENCOUNTER 2021-02-11 20:22 | Emergency (ER) | payer MEDICAID ==
[~2021-02-11] VITALS: Ht 157.5 cm; Wt 66.4 kg
[~2021-02-11 20:22] MED LIST changes: +LEVO750T5 PO
[2021-02-11 20:26] VITALS: BP 124/77
[2021-02-11] MEDS ORDERED: KETOROLAC 60 MG/2 ML VIAL. IM ONE (21:15)
--- NOTE | 2021-02-11 21:21 | PHYS DOC ---
Past History Past Medical History: UTI, Other (JAY BHARDWAJ) Past Surgical History: , Tonsillectomy, Tubal ligation (JAY BHARDWAJ) Smoking: Quit Greater Than 1 Year Alcohol Use: Rarely Drug Use: None (JAY BHARDWAJ) General Adult EDM: Chief Complaint: ABDOMINAL PAIN HPI: HPI: Patient is a 35 year old female who turns to the emergency department with complaints of abdominal pain and flank pain. She was seen here in the department yesterday and diagnosed with pyelonephritis. She was prescribed levofloxacin. She states she has taken her antibiotic today. Patient reports she also had an Excedrin around noon. She denies any change in symptoms. Her complaint today is that she continues to have abdominal and flank pain. (JAY BHARDWAJ) Review of Systems: Review of Systems: 12 systems reviewed. ROS negative except as mentioned in HPI. (JAY BHARDWAJ) Current Medications: Current Meds: Current Medications Medications (Trade) Dose Ordered Sig/Marco Start Time Stop Time Status Last Admin Dose Admin Ketorolac Tromethamine (Toradol Im) 60 mg 1X ONCE 02/11/21 21:15 02/11/21 21:16 UNV (JAY BHARDWAJ) Allergies: Allergies: Allergies Coded Allergies Type Severity Reaction Last Updated Verified Penicillins Allergy Unknown 02/10/21 Yes (JAY BAHRDWAJ) Physical Exam: PE: Constitutional: Well developed, well nourished, patient appears to be in pain, nontoxic appearance. Cardiovascular: Heart rate regular rhythm, no murmur. Lungs & Thorax: Bilateral breath sounds clear to auscultation. Abdomen: Bowel sounds normal, soft, no tenderness, no masses, no pulsatile masses. Back: No step-off, no midline tenderness, no paraspinal tenderness, right-sided CVA tenderness appreciated. (JAY BHARDWAJ) Current Patient Data: Vital Signs: Vital Signs Date Time Temp Pulse Resp B/P (MAP) Pulse Ox O2 Delivery O2 Flow Rate FiO2 02/11/21 20:26 98.2 112 16 124/77 (93) 100 Room Air (JAY BHARDWAJ) Heart Score: C/O Chest Pain: No (JAY BHARDWAJ) Course & Med Decision Making: Course & Med Decision Making Pertinent Labs and Imaging studies reviewed. (See chart for details) Patient is a 35-year-old female who was diagnosed with pyelonephritis in the emergency department yesterday. She presents today because she is still in pain. Patient will be given Toradol IM. Patient was not satisfied with nursing care in the department and asked for new nurse. A separate nurse in the department administered her toradol. When I went in to reevaluate the patient and let her know that the department is busy and we are doing our best to treat everyone in a timely manner, and asked if her pain had improved. She was unsatisfied with how I spoke to her and decided to leave AGAINST MEDICAL ADVICE. I verbalized to the patient that should she leave, there is risk of worsening of symptoms, permanent disability and . Patient verbalized understanding but refused to sign paperwork. (JAY BHARDWAJ) Course & Med Decision Making I was the Attending physician on the above date of service of this patient. This patient was evaluated, examined, treated, and dispositioned from the emergency department by the mid-level practitioner. Although I was working at the time , no assistance was requested. Electronically signed, Danika Odom DO (DANIKA ODOM DO) Dennis Disclaimer: Dennis Disclaimer: This electronic medical record was generated, in whole or in part, using a voice recognition dictation system. (JAY BHARDWAJ) Departure Departure: Impression: Primary Impression: Left against medical advice Additional Impression: Pyelonephritis Disposition: 07 LEFT AGAINST MEDICAL ADVICE Condition: GUARDED Referrals: PCP,NO (PCP) JAY BHARDWAJ Feb 11, 2021 21:21 DANIKA ODOM DO Feb 12, 2021 01:35
== END 2021-02-11 22:19 | disposition left against medical advice (07) ==
LOC: ER 20:22
DX: N12 Tubulo-interstitial nephritis, not specified as acute or chronic (principal); Z87.891 Personal history of nicotine dependence; Z88.0 Allergy status to penicillin
CPT/HCPCS: 96372; 99283; J1885